=== PATIENT | male | born 1955 | race Caucasian/White ===

== ENCOUNTER 2020-05-31 10:38 | Day surgery (SDC) | payer OTHER ==
[~2020-05-31] VITALS: Ht 180.3 cm; Wt 100.0 kg
[~2020-05-31 10:38] MED LIST: AMLO5 PO; LISI20 PO; ZOCOR20 MG PO
--- NOTE | 2020-05-31 11:49 | NUR ---
05/31/20 1149 SHANNA HOANG TIME OUT AND SITE CHECK COMPLETED FOR NERVE BLOCK IN RIGHT HAND. PT TOLERATED PROCEDURE WELL.
== END 2020-05-31 12:35 | disposition home or self-care (01) ==
LOC: ORSCSDS 10:38
PROVIDERS: Orthopaedic Surgery
PROC: 01N54ZZ Release Median Nerve, Percutaneous Endoscopic Approach (ICD-10-PCS; principal; 2020-05-31 11:45)
DX: G56.01 Carpal tunnel syndrome, right upper limb (principal); I10 Essential (primary) hypertension; E66.01 Morbid (severe) obesity due to excess calories; Z68.30 Body mass index [BMI] 30.0-30.9, adult; Z79.899 Other long term (current) drug therapy
CPT/HCPCS: J2250; J7120

== ENCOUNTER 2020-06-14 08:42 | Day surgery (SDC) | payer OTHER ==
[~2020-06-14] VITALS: Ht 180.3 cm; Wt 101.3 kg
--- NOTE | 2020-06-14 10:27 | NUR ---
06/14/20 1027 Nelly Kimball SURGERY PERFORMED AT [facility] R/T GENERATOR ISSUES.
== END 2020-06-14 10:50 | disposition home or self-care (01) ==
LOC: ORSCSDS 08:42
PROVIDERS: Orthopaedic Surgery
PROC: 01N54ZZ Release Median Nerve, Percutaneous Endoscopic Approach (ICD-10-PCS; principal; 2020-06-14 10:00)
DX: I10 Essential (primary) hypertension (principal); E78.5 Hyperlipidemia, unspecified; Z79.899 Other long term (current) drug therapy
CPT/HCPCS: J2250; J3010; J7120

== ENCOUNTER → 2020-07-05 | Outpatient (CLI) | payer OTHER | END | disposition home or self-care (01) | LOC: LAB SHORT 12:11 → PLD 12:11 | DX: D22.39 Melanocytic nevi of other parts of face (principal) | CPT/HCPCS: 88305 ==

== ENCOUNTER → 2021-07-05 | Outpatient (CLI) | payer OTHER | END | disposition home or self-care (01) | LOC: LAB SHORT 11:07 | DX: D36.17 Benign neoplasm of peripheral nerves and autonomic nervous system of trunk, unspecified (principal) | CPT/HCPCS: 88305 ==

== ENCOUNTER 2022-01-15 07:17 | Day surgery (SDC) | payer OTHER ==
[~2022-01-15] VITALS: Ht 180.3 cm; Wt 101.8 kg
[2022-01-15] MEDS ORDERED: THERA-D2000 UNIT (07:42)
[2022-01-15] MEDS ORDERED: SILD50TA (07:43)
[2022-01-15] MEDS ORDERED: COENZYME Q-10200 M1 (07:43)
== END 2022-01-15 09:44 | disposition home or self-care (01) ==
LOC: ORSCSDS 07:17
PROVIDERS: Internal Medicine Gastroenterology
PROC: 0DB68ZX Excision of Stomach, Via Natural or Artificial Opening Endoscopic, Diagnostic (ICD-10-PCS; principal; 2022-01-15 08:45)
PROC: 0DB58ZX Excision of Esophagus, Via Natural or Artificial Opening Endoscopic, Diagnostic (ICD-10-PCS; principal; 2022-01-15 08:45)
DX: R13.10 Dysphagia, unspecified (principal); K31.7 Polyp of stomach and duodenum; K29.70 Gastritis, unspecified, without bleeding; K21.00 Gastro-esophageal reflux disease with esophagitis, without bleeding; K44.9 Diaphragmatic hernia without obstruction or gangrene; I10 Essential (primary) hypertension; Z85.46 Personal history of malignant neoplasm of prostate; Z79.899 Other long term (current) drug therapy
CPT/HCPCS: 88305; 88342; J2704; J7120

== ENCOUNTER 2022-12-05 10:33 | Inpatient (IN) | payer OTHER ==
[2022-12-05] VITALS (15 sets, daily range): BP systolic 109–138; BP diastolic 66–85
[~2022-12-05] VITALS: Ht 180.3 cm; Wt 105.7 kg
[~2022-12-05 10:33] MED LIST changes: +COENZYME Q-10200 M1; +SILD50TA; +THERA-D2000 UNIT
[2022-12-05 11:26] LABS: BASOPHILS ABSOLUTE AUTO 0.03 K/mm3 (0.00-0.23); BASOPHILS PERCENT AUTO 0 % (0-2); EOSINOPHILS PERCENT AUTO 0 % (0-6); Hematocrit 43.9 % (37.0-53.0); Hemoglobin 14.9 g/dL (13.5-17.5); IMMATURE GRAN ABSOLUTE AUTO 0.17 K/mm3 (0.00-0.10); IMMATURE GRAN PERCENT AUTO 1 % (0-1); LYMPHOCYTES ABSOLUTE AUTO 0.73 K/mm3 (0.84-5.20); LYMPHOCYTES PERCENT AUTO 3 % (21-46); MONOCYTES ABSOLUTE AUTO 1.74 K/mm3 (0.16-1.47); MONOCYTES PERCENT AUTO 7 % (4-13); Mean Corpuscular HGB 30.9 pg (26.0-34.0); Mean Corpuscular HGB Conc 33.9 g/dL (31.5-36.5); Mean Corpuscular Volume 91 fL (80-100); Mean Platelet Volume 10.2 fL (9.1-12.4); NEUTROPHILS ABSOLUTE AUTO 20.77 K/mm3 (1.96-9.15); NEUTROPHILS PERCENT AUTO 89 % (41-73); Platelet Count 238 K/mm3 (150-400); RDW Coefficient Variation 14.3 % (11.7-14.2); RDW Standard Deviation 47.8 fL (35.1-46.3); Red Blood Cell Count 4.82 M/mm3 (4.30-5.90); White Blood Cell Count 23.44 K/mm3 (4.00-11.30)
[2022-12-05 11:51] LABS: Albumin, Blood 3.6 g/dL (3.4-5.0); Albumin/Globulin Ratio 0.9 (0.8-1.8); Bilirubin, Total 1.2 mg/dL (0.1-1.0); Bun/Creatinine Ratio 15.7 (12.0-20.0); Creatinine, Blood 1.08 mg/dL (0.60-1.20); Total Protein, Blood 7.6 g/dL (6.4-8.2)
[2022-12-05 12:35] LABS: Source, Urine Clean Catch
[2022-12-05 12:44] LABS: Bilirubin, Urine Neg (Neg); Blood, Urine 3+ (Neg); Glucose Qualitative, Urine Neg (Neg); Ketones, Urine 1+ (Neg); Leukocyte Esterase, Urine Neg (Neg); Nitrite, Urine Neg (Neg); Protein, Urine 2+ (Neg); Urobilinogen, Urine NORM (Normal)
[2022-12-05 13:09] LABS: Color, Urine Yellow (P-Yellow)
[2022-12-05 13:10] LABS: Appearance, Urine Hazy (Clear); Bacteria Not Seen /hpf; Squamous Epithelial Cells Rare /hpf (Few); White Blood Cells, Urine Not Seen /hpf (0-5)
--- NOTE | 2022-12-05 15:15 | NUR ---
Into [facility] via [employer]. Pt a&ox4-reports 2/10 abdominal pain. History, Chart, Medications and Allergies reviewed before start of procedure.Lungs clear T/O to Auscultation. Patient confirms NPO status and agrees with scheduled surgery. Surgical site prepped with 2% Chlorhexidine cloth wipe.
--- NOTE | 2022-12-05 15:25 | NUR ---
#20 PIV TO LEFT AC PATENT.DRESSING C/D/I.
--- NOTE | 2022-12-05 20:13 | NUR ---
SHIFT SUMMARY PT IS POD#[address]Y [address] ROSAS. PT REPORTS PAIN MANAGED WITHOUT NEED FOR PAIN MEDS. PT TOLERATING CLEAR LIQUIDS. FAMILY AT BEDSIDE FOR SUPPORT. PT/VISITORS ASSESSED FOR IGNITION SOURCES AT TIME OF ADMIT.
[2022-12-06 00:57] VITALS: BP 125/81
[2022-12-06 04:30] LABS: Hematocrit 40.3 % (37.0-53.0); Hemoglobin 13.7 g/dL (13.5-17.5); Mean Corpuscular HGB 31.1 pg (26.0-34.0); Mean Corpuscular Volume 92 fL (80-100); Mean Platelet Volume 9.9 fL (9.1-12.4); Platelet Count 199 K/mm3 (150-400); RDW Coefficient Variation 14.4 % (11.7-14.2); RDW Standard Deviation 48.5 fL (35.1-46.3); White Blood Cell Count 16.46 K/mm3 (4.00-11.30)
--- NOTE | 2022-12-06 04:44 | NUR ---
SHIFT SUMMARY POD1 LAP APPY. X3 LAP SITES WITH STERI STRIPS IN PLACE. SLIGHT DRAINAGED ON MID LOWER SITE. TOLERATING CL AND SOME PUDDING THIS SHIFT. PATIENT UP TO BATHROOM TO VOID X1 THIS SHIFT. IV ABX INFUSED THIS SHIFT. MEDICATED FOR PAIN WITH TYLENOL. VSS. PATIENT IS A&OX4 ABLE TO MAKE NEEDS KNOWN. WILL REPORT TO DAY RN.
[2022-12-06 04:54] LABS: Albumin, Blood 3.1 g/dL (3.4-5.0); Albumin/Globulin Ratio 0.8 (0.8-1.8); Bilirubin, Total 0.7 mg/dL (0.1-1.0); Bun/Creatinine Ratio 16.9 (12.0-20.0); Calcium, Blood 8.7 mg/dL (8.5-10.1); Creatinine, Blood 1.18 mg/dL (0.60-1.20); Magnesium, Blood 2.7 mg/dL (1.6-2.4); Potassium, Blood 4.5 mmol/L (3.5-5.5); Total Protein, Blood 7.1 g/dL (6.4-8.2)
[2022-12-06 05:47] VITALS: BP 132/79
[2022-12-06 07:15] VITALS: BP 126/80
[2022-12-06 15:44] VITALS: BP 156/91
--- NOTE | 2022-12-06 16:19 | NUR ---
SHIFT SUMMARY: POD 1 LAP APPY PATIENT IS A&OX4. VS ARE WNL AND IS ON RA. PAIN IS MANAGED WITH PO PAIN MEDICATIONS. HE HAS 3 ABD LAP SITES WITH STERI STRIPS WITH ONE THAT HAS DRIED BLOOD BUT OTHERWISE THEY ARE INTACT. HE IS TOLERATING PO INTAKE, VOIDING, AND BURPING. HE IS INDEP. WALKING IN THE ROOM AND HALLWAYS. PATIENT CALLS APPROPRIATELY WITH CALL LIGHT IN REACH. THE PLAN IS TO CONTINUE PAIN MANAGEMENT AND IV ABX. POSSIBLY WILL DISCHARGE TOMORROW IF WBC CONTINUES TO TREND DOWN AND PAIN CONTINUES TO BE MANAGED.
--- NOTE | 2022-12-06 16:41 | NUR ---
PATIENT AND FAMILY MEMBERS WERE EDUCATED ON IGNITION SOURCES AND RISK OF INJURY WITH OXYGEN IN USE. BOTH FAMILY AND PATIENT VERBALIZED UNDERSTANDING OF EDUCATION AND HAD NO FURTHER QUESTIONS AT THIS TIME.
[2022-12-06 19:41] VITALS: BP 161/86
[2022-12-07 04:13] VITALS: BP 133/81
[2022-12-07 04:27] LABS: BASOPHILS ABSOLUTE AUTO 0.02 K/mm3 (0.00-0.23); BASOPHILS PERCENT AUTO 0 % (0-2); EOSINOPHILS PERCENT AUTO 0 % (0-6); Hemoglobin 14.2 g/dL (13.5-17.5); IMMATURE GRAN ABSOLUTE AUTO 0.08 K/mm3 (0.00-0.10); IMMATURE GRAN PERCENT AUTO 1 % (0-1); LYMPHOCYTES ABSOLUTE AUTO 0.85 K/mm3 (0.84-5.20); LYMPHOCYTES PERCENT AUTO 5 % (21-46); MONOCYTES ABSOLUTE AUTO 1.04 K/mm3 (0.16-1.47); MONOCYTES PERCENT AUTO 6 % (4-13); Mean Corpuscular HGB 30.9 pg (26.0-34.0); Mean Corpuscular HGB Conc 34.6 g/dL (31.5-36.5); Mean Corpuscular Volume 89 fL (80-100); Mean Platelet Volume 10.8 fL (9.1-12.4); NEUTROPHILS ABSOLUTE AUTO 15.49 K/mm3 (1.96-9.15); NEUTROPHILS PERCENT AUTO 89 % (41-73); Platelet Count 255 K/mm3 (150-400); RDW Coefficient Variation 14.6 % (11.7-14.2); RDW Standard Deviation 47.3 fL (35.1-46.3); Red Blood Cell Count 4.59 M/mm3 (4.30-5.90); White Blood Cell Count 17.48 K/mm3 (4.00-11.30)
--- NOTE | 2022-12-07 05:43 | NUR ---
EOS NOTE: ONE EPISODE OF EMESIS FOR PT AROUND 1999, PATIENT HAS SINCE TOLERATED PO WELL & TOOK EVENING MEDICATION WITHOUT ANOTHER ROUND OF N/V. A/OX4, MAEE, INDEPENDENT IN THE ROOM. PASSING MORE GAS THAN PREVIOUS DAY ACCORDING TO PATIENT, NO BM BUT BOWL SOUNDS ARE MORE ACTIVE ALSO. MILD DISTENTION NOTED, MILD TENDERNESS AT SURGICAL SITES. LAP SITES ARE C/D/I. VSS. PATIENT HOPEFUL TO DC BACK HOME TODAY.
[2022-12-07 07:27] VITALS: BP 142/89
--- NOTE | 2022-12-07 09:46 | NUR ---
imaging: PT TO XRAY AT THIS TIME. PT HAS BEEN UP AMBULATING INDEP. PASSING SMALL AMTS FLATUS. NO NAUSEA OR EMESIS AT THIS TIME. WILL CONT TO MONITOR.
[2022-12-07 10:57] LABS: Albumin, Blood 2.8 g/dL (3.4-5.0); Albumin/Globulin Ratio 0.6 (0.8-1.8); Bilirubin, Total 0.5 mg/dL (0.1-1.0); Bun/Creatinine Ratio 24.2 (12.0-20.0); Calcium, Blood 9.1 mg/dL (8.5-10.1); Creatinine, Blood 1.24 mg/dL (0.60-1.20); Globulin, Blood 4.4 g/dL (2.2-4.0); Potassium, Blood 4.2 mmol/L (3.5-5.5); Total Protein, Blood 7.2 g/dL (6.4-8.2)
[2022-12-07 15:15] VITALS: BP 154/80
--- NOTE | 2022-12-07 18:40 | NUR ---
PT HAS NOT PROGRESSED THIS SHIFT. XRAY SHOWS ILEUS. PT CHANGED TO CLEARS, GINO SMALL AMTS. DENIES NAUSEA. NO EMESIS. PT HAS HAD SMALL AMTS FLATUS. PT ON IV FLUIDS. REGLAN SCHEDULED WITH MEALS. WBC INCREASED. CONT IV ABX. PT HAS BEEN AMBULATING HALLWAY FREQUENTLY. ABD MODERATELY DISTENDED. LAP INCISIONS CDI. PT HAS NOT REQUIRED PAIN MEDICATIONS THIS SHIFT. CALLS APPROPRIATELY NEEDED.
[2022-12-07 19:14] VITALS: BP 151/84
[2022-12-08 04:01] VITALS: BP 128/88
--- NOTE | 2022-12-08 05:11 | NUR ---
SHIFT SUMMARY POD3 LAP APPY. LAP SITES ARE C/D/I. VSS. PT SLEPT ON AND OFF T/O THE NIGHT. PT VOIDING W/O DIFFICULTY. NO BM OR FLATTUS NOTED. PT DENIES N/V. MEDICATED WITH BOWEL CARE PER EMAR. AWAITING RETURN OF BOWEL FUNCTION. MEDICATED FOR PAIN WITH PRN'S, PT EDUCATED ON RISKS OF FURTHER CONSTIPATION WITH NARCOTIC USE. ABD BINDER IN PLACE. PLAN TO SEE IF PT HAS BOWEL FUNCTION T/O THE DAY, POSSIBLY ADVANCE DIET. THE PATIENT IS CURRENTLY SLEEPING, IN NO DISTRESS, CALL LIGHT IN REACH NO IGNITION SOURCE IDENTIFIED
[2022-12-08 08:09] VITALS: BP 155/98
[2022-12-08 08:10] VITALS: BP 143/90
--- NOTE | 2022-12-08 10:04 | NUR ---
IGNITION RISK PATIENT EDUCATED ON RISK REGARDING IGNITION SOURCES AND RISK OF INJURY WHILE OXYGEN IS IN USE. PATIENT DENIES SMOKING AND VERBALIZE UNDERSTANDING.
[2022-12-08 15:54] VITALS: BP 170/91
[2022-12-08 15:55] VITALS: BP 161/90
--- NOTE | 2022-12-08 17:35 | NUR ---
SHIFT SUMMARY: PT REMAINS ALERT AND ORIENTED X4, ABLE TO FOLLOW COMMANDS AND MAKE NEEDS KNOWN. BP AND HR STABLE, AFEBRILE, SATS >98% ON ROOM AIR. PT WITH NO BM THIS SHIFT, BOWEL CARE AND ENEMA GIVEN, UNSUCCESSFUL. MD CALLED AND UPDATED, ORDERS FOR ABDOMEN CT. PT AMBULATED IN HALLS THROUGHOUT THE DAY, TOLERATED WELL. BED IN LOW, CALL LIGHT IN REACH, WILL REPORT TO ONCOMING RN.
[2022-12-08 20:21] VITALS: BP 146/85
[2022-12-09 04:01] VITALS: BP 148/88
--- NOTE | 2022-12-09 05:10 | NUR ---
SHIFT SUMMARY POD4 LAP APPY. INCISIONS ARE C/D/I. SS DRAINAGE NOTED ON STERI STRIPS. VSS. PT SLEPT ON AND OFF T/O THE NIGHT. PT REPORTS PASSING LARGE AMOUNTS OF FLATTUS AND HAS HAD 4 BOWEL MOVEMENTS, BOTH LIQUID AND FORMED STOOL NOTED. PT REPORTS FEELING RELIEF. ABD NOTED TO BE SOFTER BUT STILL DISTENED. PT MEDICATED FOR PAIN WTIH PRN'S. PT TOLLERATING CLEAR LIQUID DIET. NO N/V NOTED. NO ACUTE EVENTS. PLAN TO POSSIBLY ADVANCE PTS DIET TODAY. THE PATIENT IS CURRENTLY SLEEPING, IN NO DISTRESS, CALL LIGHT IN REACH NO IGNITION SOURCE NOTED
[2022-12-09 05:30] LABS: BASOPHILS ABSOLUTE AUTO 0.05 K/mm3 (0.00-0.23); BASOPHILS PERCENT AUTO 0 % (0-2); EOSINOPHILS ABSOLUTE AUTO 0.18 K/mm3 (0.00-0.68); EOSINOPHILS PERCENT AUTO 1 % (0-6); Hematocrit 37.5 % (37.0-53.0); Hemoglobin 12.7 g/dL (13.5-17.5); IMMATURE GRAN PERCENT AUTO 2 % (0-1); LYMPHOCYTES ABSOLUTE AUTO 1.46 K/mm3 (0.84-5.20); LYMPHOCYTES PERCENT AUTO 11 % (21-46); MONOCYTES ABSOLUTE AUTO 1.38 K/mm3 (0.16-1.47); MONOCYTES PERCENT AUTO 10 % (4-13); Mean Corpuscular HGB 30.5 pg (26.0-34.0); Mean Corpuscular HGB Conc 33.9 g/dL (31.5-36.5); Mean Corpuscular Volume 90 fL (80-100); NEUTROPHILS ABSOLUTE AUTO 10.39 K/mm3 (1.96-9.15); NEUTROPHILS PERCENT AUTO 76 % (41-73); Platelet Count 295 K/mm3 (150-400); RDW Coefficient Variation 15.1 % (11.7-14.2); Red Blood Cell Count 4.16 M/mm3 (4.30-5.90); White Blood Cell Count 13.66 K/mm3 (4.00-11.30)
[2022-12-09 05:56] LABS: Bun/Creatinine Ratio 21.5 (12.0-20.0); Calcium, Blood 8.7 mg/dL (8.5-10.1); Creatinine, Blood 0.89 mg/dL (0.60-1.20)
[2022-12-09 07:39] VITALS: BP 138/80
--- NOTE | 2022-12-09 13:23 | NUR ---
PT DENIES HAVING ANY SOURCES OF IGNITION IN ROOM.
[2022-12-09] MEDS ORDERED: DOCU100 PO (14:49)
[2022-12-09] MEDS ORDERED: KETO10 PO (14:49)
[2022-12-09] MEDS ORDERED: LEVO750 PO (14:50)
--- NOTE | 2022-12-09 16:01 | NUR ---
DC'D HOME, DC INSTRUCTIONS GIVEN, VERBALIZED UNDERSTANDING.
== END 2022-12-09 16:00 | disposition home or self-care (01) | DRG 342 ==
LOC: ER 10:33 → SURS 13:29 → ER 15:02 → SURS 16:44
PROVIDERS: Student in an Organized Health Care Education/Training Program; Surgery; ADMIT Hospitalist
PROC: 0DTJ4ZZ Resection of Appendix, Percutaneous Endoscopic Approach (ICD-10-PCS; principal; 2022-12-05 15:30)
DX: K35.20 Acute appendicitis with generalized peritonitis, without abscess (principal); K56.7 Ileus, unspecified; Z68.45 Body mass index [BMI] 70 or greater, adult; K91.89 Other postprocedural complications and disorders of digestive system; I10 Essential (primary) hypertension; E78.5 Hyperlipidemia, unspecified; R13.10 Dysphagia, unspecified; Z79.899 Other long term (current) drug therapy; Z87.39 Personal history of other diseases of the musculoskeletal system and connective tissue; Z90.79 Acquired absence of other genital organ(s)
CPT/HCPCS: 36415; 74018; 74177; 80048; 80053; 81001; 83690; 83735; 85025; 85027; 88304; 94760; 96361; 96365-59; 96375; 99285-25; A9270; J0295; J1100; J1170; J1885; J2371; J2405; J2543; J2704; J3010; J7030; J7050; J7120; Q9967

== ENCOUNTER 2024-08-02 10:03 | Day surgery (SDC) | payer OTHER ==
[~2024-08-02] VITALS: Ht 180.3 cm; Wt 109.2 kg
[~2024-08-02 10:03] MED LIST changes: +DOCU100 PO; +KETO10 PO; +LEVO750 PO; +Lactated Ringer's 1,000 ML IV ONE; +Lidocaine HCl 2% 10 ML SDA ONE
[2024-08-02] MEDS ORDERED: Lactated Ringer's 1,000 ML IV ONE (10:21)
[2024-08-02] MEDS ORDERED: LISINOPRIL-HCT1 EACH (10:23)
[2024-08-02] MEDS ORDERED: OMEP20ER (10:23)
[2024-08-02] MEDS ORDERED: AMLODIPINE BESY10 MG (10:24)
[2024-08-02] MEDS ORDERED: ROSUVASTATIN CA10 MG (10:24)
[2024-08-02] MEDS ORDERED: METOPROLOL SUCC25 MG (10:25)
[2024-08-02] MEDS ORDERED: propofoL 20 ML IV ONE (11:31)
[2024-08-02] MEDS ORDERED: Midazolam HCl 1MG / ML 2ML Vial ONE (11:32)
[2024-08-02] MEDS ORDERED: FentaNYL Citrate 50 MCG/ML 2 ML Injection ONE (11:33)
[2024-08-02] MEDS ORDERED: Ondansetron HCl 2 MG / ML 2ML Vial ONE (11:44)
[2024-08-02] MEDS ORDERED: Dexamethasone Sod Phos 10 MG/ML 1ML VIAL ONE (11:44)
[2024-08-02 12:33] VITALS: BP 125/76
--- NOTE | 2024-08-02 12:51 | NUR ---
08/02/24 1251 Kristyn Christie D/Joshua INSTRUCTIONS GIVEN TO PT, UNDERSTANDING VERBALIZED. PT HAS ALL BELONGINGS W/ HIM, INCLUDING CELLPHONE, GLASSES & BINDER. PT PROVIDED W/ ICE PACK. PT TOLERATING WATER W/O COMPLAINT. VSS, ON RA, PT DENIES PAIN/NAUSEA. ALL BELONGINGS RETURNED TO PT. PT AMBULATING OUT TO PT PICKUP AREA WHERE HE WILL BE DRIVEN HOME BY DAUGHTER, MIKE. STEADY GAIT NOTED. NO VISIBLE SIGNS OF DISTRESS NOTED.
== END 2024-08-02 12:51 | disposition home or self-care (01) ==
LOC: ORSCSDS 10:03
PROVIDERS: Orthopaedic Surgery
PROC: 0JBH0ZX Excision of Left Lower Arm Subcutaneous Tissue and Fascia, Open Approach, Diagnostic (ICD-10-PCS; principal; 2024-08-02 11:30)
DX: M67.432 Ganglion, left wrist (principal); I10 Essential (primary) hypertension; E78.5 Hyperlipidemia, unspecified; E66.9 Obesity, unspecified; Z68.33 Body mass index [BMI] 33.0-33.9, adult; Z79.899 Other long term (current) drug therapy
CPT/HCPCS: 88304; J1100; J2003; J2250; J2405; J2704; J3010; J7120